=== PATIENT | male | born 1995 | race African-American/Black ===

== ENCOUNTER 2022-11-16 00:49 | Emergency (ER) | payer SELFPAY ==
[2022-11-16 00:48] VITALS: BP 139/80; PULSE 101; RESP 16; TEMP 36.7; O2SAT 98
[2022-11-16 02:21] LABS: Glucose Point of Care 126 mg/dl (65-105)
[2022-11-16 02:50] LABS: Ethanol 158 mg/dL (<10)
--- NOTE | 2022-11-16 05:04 | ED.GENADULT ---
HPI - General Adult General Chief complaint: Alcohol Stated complaint: etoh Time Seen by Provider: 11/16/22 00:51 History of Present Illness HPI narrative: 26-year-old male presenting from the [place] for alcohol intoxication. He was found sleeping on the floor of the bar. EMS was called and he was brought to the hospital. On arrival the patient was intoxicated but alert oriented. No reports of trauma. No one was available to come pick the patient up. Related Data Allergies Allergy/AdvReac Type Severity Reaction Status Date / Time No Known Allergies Allergy Verified 11/16/22 00:52 Exam Narrative: APPEARANCE: No apparent distress. smells of alcohol Head: atraumatic. EYES: EOMI, NOSE: Atraumatic NECK: Trachea midline RESPIRATORY: No increased rate of breathing clear to auscultation CARDIOVASCULAR: slightly tachycardic ABDOMINAL: Non-distended, soft no guarding or rebound MUSCULOSKELETAl: No obvious deformities NEURO: Alert. Moving 4/4 extremities SKIN:: Warm, dry. Normal color PSYCHIATRIC: Normal affect Course Vital Signs Vital signs: Vital Signs Temperature 98.1 F 11/16/22 00:48 Pulse Rate 101 H 11/16/22 00:48 Respiratory Rate 16 11/16/22 00:48 Blood Pressure 139/80 11/16/22 00:48 Pulse Oximetry 98 11/16/22 00:48 Oxygen Delivery Room Air 11/16/22 00:48 Temperature 98.1 F 11/16/22 00:48 Pulse Rate 101 H 11/16/22 00:48 Respiratory Rate 16 11/16/22 00:48 Blood Pressure 139/80 11/16/22 00:48 Pulse Oximetry 98 11/16/22 00:48 Oxygen Delivery Room Air 11/16/22 00:[address] [facility] Narrative Medical decision making narrative: -Presentation: 26-year-old male presenting ED with chief complaint of alcohol intoxication. 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 He was discharged. -RX Vital Signs Vital Signs: Vital Signs Temperature 98.1 F 11/16/22 00:48 Pulse Rate 101 H 11/16/22 00:48 Respiratory Rate 16 11/16/22 00:48 Blood Pressure 139/80 11/16/22 00:48 Pulse Oximetry 98 11/16/22 00:48 Oxygen Delivery Room Air 11/16/22 00:48 Temperature 98.1 F 11/16/22 00:48 Pulse Rate 101 H 11/16/22 00:48 Respiratory Rate 16 11/16/22 00:48 Blood Pressure 139/80 11/16/22 00:48 Pulse Oximetry 98 11/16/22 00:48 Oxygen Delivery Room Air 11/16/22 00:48 Lab Data Labs: Lab Results 11/16/22 11/16/22 Range/Units 02:16 02:17 POC Capillary Glucose 126 H (65-105) mg/dl Ethyl Alcohol 158 (<10) mg/dL Discharge Plan Discharge Clinical Impression: Alcoholic intoxication Patient Disposition: Home, Self-Care Condition: Stable Instructions: Antibiotic Form, Alcohol Intoxication (ED) Additional Instructions: You were seen in the emergency department for alcohol intoxication. Please drink in moderation. Follow-up/Referrals: PHYSICIAN NOT ON STAFF,NONSTAFF [Primary Care Provider] -
[2022-11-16 05:20] VITALS: BP 158/81; PULSE 94; RESP 15; TEMP 37; O2SAT 99
== END 2022-11-16 05:21 | disposition home or self-care (01) ==
PROVIDERS: Emergency Provider Emergency Medicine
DX: F10.129 Alcohol abuse with intoxication, unspecified (principal); Y90.6 Blood alcohol level of 120-199 mg/100 ml
CPT/HCPCS: 36415; 80307; 82948; 99283